=== PATIENT | female | born 1965 | race Caucasian/White ===

== ENCOUNTER 2023-12-23 18:08 | Outpatient (RCR) | payer OTHER, SELFPAY | END 2023-12-23 23:59 | disposition home or self-care (01) | LOC: RPT 18:08 | PROVIDERS: ATTENDING PHYSICIAN Internal Medicine | DX: S42.202D Unspecified fracture of upper end of left humerus, subsequent encounter for fracture with routine healing (principal); M25.512 Pain in left shoulder; Z73.6 Limitation of activities due to disability | CPT/HCPCS: 97010; 97110; 97140; 97163 ==

== ENCOUNTER 2024-01-20 19:02 | Outpatient (RCR) | payer OTHER, SELFPAY | END 2024-01-20 23:59 | disposition home or self-care (01) | LOC: RPT 19:02 | PROVIDERS: ATTENDING PHYSICIAN Internal Medicine | DX: S42.202D Unspecified fracture of upper end of left humerus, subsequent encounter for fracture with routine healing (principal); M25.512 Pain in left shoulder; Z73.6 Limitation of activities due to disability | CPT/HCPCS: 97010; 97110; 97140 ==

== ENCOUNTER 2024-02-22 19:17 | Outpatient (RCR) | payer OTHER, SELFPAY | END 2024-02-22 23:59 | disposition home or self-care (01) | LOC: RPT 19:17 | PROVIDERS: ATTENDING PHYSICIAN Internal Medicine | DX: S42.202D Unspecified fracture of upper end of left humerus, subsequent encounter for fracture with routine healing (principal); M25.512 Pain in left shoulder; Z73.6 Limitation of activities due to disability | CPT/HCPCS: 97010; 97110; 97140; 97530 ==

== ENCOUNTER 2024-03-07 19:09 | Outpatient (RCR) | payer OTHER, SELFPAY | END 2024-03-08 07:37 | disposition home or self-care (01) | LOC: RPT 19:09 | PROVIDERS: ATTENDING PHYSICIAN Internal Medicine | DX: S42.202D Unspecified fracture of upper end of left humerus, subsequent encounter for fracture with routine healing (principal); M25.512 Pain in left shoulder; Z73.6 Limitation of activities due to disability | CPT/HCPCS: 97110; 97530 ==

== ENCOUNTER → 2024-06-20 07:02 | Outpatient (REF) | payer OTHER, SELFPAY | LOC: MRI 3T 07:02 | PROVIDERS: ATTENDING PHYSICIAN Orthopaedic Surgery | DX: S42.92XA Fracture of left shoulder girdle, part unspecified, initial encounter for closed fracture (principal) | CPT/HCPCS: 73221 ==